=== PATIENT | female | born 2000 | race Caucasian/White ===

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

== ENCOUNTER 2024-06-23 08:44 | Emergency (ER) | payer OTHER, BC ==
[2024-06-23 08:52] VITALS: BP 129/89; PULSE 85
== END 2024-06-23 10:00 | disposition home or self-care (01) ==
LOC: SUPCPDRO 08:44 → LL.ED 08:44
DX: S49.91XA Unspecified injury of right shoulder and upper arm, initial encounter (principal); Z90.89 Acquired absence of other organs; Z79.899 Other long term (current) drug therapy; W19.XXXA Unspecified fall, initial encounter
CPT/HCPCS: 73030-RT; 99283

== ENCOUNTER 2025-05-07 21:29 | Emergency (ER) | payer BC, OTHER ==
[2025-05-07 21:59] LABS: BASOPHILS ABSOLUTE AUTO 0.04 K/uL (0.00-0.20); BASOPHILS PERCENT AUTO 0.3 % (0.0-2.0); EOSINOPHILS ABSOLUTE AUTO 0.15 K/uL (0.00-0.50); EOSINOPHILS PERCENT AUTO 1.2 % (0.0-5.0); IMMATURE GRAN ABSOLUTE AUTO 0.02 10^3/uL (0.00-0.04); IMMATURE GRAN PERCENT AUTO 0.2 % (0.0-0.4); LYMPHOCYTES ABSOLUTE AUTO 3.34 K/uL (0.50-3.50); LYMPHOCYTES PERCENT AUTO 27.5 % (10.0-50.0); MONOCYTES ABSOLUTE AUTO 0.90 K/uL (0.00-1.00); MONOCYTES PERCENT AUTO 7.4 % (2.0-14.0); NEUTROPHILS ABSOLUTE AUTO 7.70 K/uL (1.40-7.00); NEUTROPHILS PERCENT AUTO 63.4 % (45.0-80.0); PLATELET COUNT,PLT 268 K/uL (150-350); RED BLOOD CELL COUNT 4.45 M/uL (3.77-5.09); RED CELL DISTRIBUTION WIDTH 13.6 % (11.2-14.1); WHITE BLOOD CELL COUNT,WBC 12.2 K/uL (4.0-10.2)
[2025-05-07 22:16] LABS: APPEARANCE,URINE CLEAR; GLUCOSE,URINE NEGATIVE (NEGATIVE); OCCULT BLOOD,URINE NEGATIVE (NEGATIVE)
[2025-05-07 22:18] LABS: INR 1.0 (0.9-1.1)
[2025-05-07 22:22] LABS: ALANINE AMINOTRANSFERASE,ALT 89.0 U/L (12-78); ASPARTATE AMNIOTRANSFERASE,AST 35.0 U/L (15-37); BILIRUBIN TOTAL 0.4 mg/dL (0.2-1.0); BLOOD UREA NITROGEN,BUN 11.0 mg/dL (7-18); CARBON DIOXIDE,CO2 24.7 mmol/L (21.0-32.0); CHLORIDE,CL 103.0 mmol/L (98-107); CREATININE 0.84 mg/dL (0.51-1.17); EST CRCL DRUG DOSING (CG) 89.95 mL/min; ESTIMATED GFR 100.0 mL/min (>=60); GLUCOSE RANDOM 137.0 mg/dL (70-99); POTASSIUM,K 3.9 mmol/L (3.5-5.1); PROTEIN TOTAL,TP 7.4 g/dL (6.4-8.2); SODIUM,NA 141.0 mmol/L (136-145)
[2025-05-07] MEDS ORDERED: Sodium Chloride 0.9% 10 ML Syringe FLUSH PRN (22:24)
[2025-05-07] MEDS: Iopamidol 612 MG/ML 100 ML Bottle IVPUSH STA (23:12)
[2025-05-08 00:22] VITALS: BP 124/68; PULSE 70
== END 2025-05-08 00:22 | disposition home or self-care (01) ==
LOC: LL.ED 21:29
DX: K64.8 Other hemorrhoids (principal); Z79.899 Other long term (current) drug therapy
CPT/HCPCS: 36415; 74177; 80053; 81003; 81025; 82150; 83690; 85025; 85610; 99284; Q9967